=== PATIENT | male | born 1980 | race Caucasian/White ===

== ENCOUNTER 2018-01-21 10:49 | Emergency (ER) | payer MEDICAID, OTHER ==
[~2018-01-21] VITALS: Ht 180.3 cm; Wt 92.3 kg
[2018-01-21 10:58] VITALS: BP 127/83
[2018-01-21] MEDS ORDERED: GABA-531 PO (11:09)
[2018-01-21] MEDS ORDERED: ACET-48 PO (11:09)
[2018-01-21] MEDS ORDERED: MONT10TA21 PO (11:09)
[2018-01-21] MEDS ORDERED: PHENY100 PO (11:09)
[2018-01-21] MEDS ORDERED: CARI1.5C PO (11:09)
[2018-01-21] MEDS ORDERED: DOXA2TAB PO (11:09)
== END 2018-01-21 11:27 | disposition left against medical advice (07) ==
LOC: EMS 10:50
DX: G40.909 Epilepsy, unspecified, not intractable, without status epilepticus (principal); F19.10 Other psychoactive substance abuse, uncomplicated; Z53.21 Procedure and treatment not carried out due to patient leaving prior to being seen by health care provider
CPT/HCPCS: 99281; 99283